=== PATIENT | female | born 1995 | race Caucasian/White ===

== ENCOUNTER 2018-09-14 12:38 | Emergency (ER) | payer OTHER ==
[~2018-09-14] VITALS: Ht 170.2 cm; Wt 65.8 kg
[2018-09-14 12:45] VITALS: BP 119/77
== END 2018-09-14 13:26 | disposition home or self-care (01) ==
LOC: ER 12:38
DX: S80.862A Insect bite (nonvenomous), left lower leg, initial encounter (principal); S80.861A Insect bite (nonvenomous), right lower leg, initial encounter; L08.9 Local infection of the skin and subcutaneous tissue, unspecified; R07.89 Other chest pain; F41.9 Anxiety disorder, unspecified; W57.XXXA Bitten or stung by nonvenomous insect and other nonvenomous arthropods, initial encounter; Y93.89 Activity, other specified; Y92.89 Other specified places as the place of occurrence of the external cause; Y99.8 Other external cause status